=== PATIENT | female | born 1930 | race Caucasian/White ===

== ENCOUNTER → 2017-01-14 | Outpatient (CLI) | payer OTHER | END | disposition home or self-care (01) | LOC: PCVCCLINIC 12:17 | PROVIDERS: ATTEND Internal Medicine Cardiovascular Disease | DX: I48.0 Paroxysmal atrial fibrillation (principal); I65.29 Occlusion and stenosis of unspecified carotid artery; I10 Essential (primary) hypertension; E78.00 Pure hypercholesterolemia, unspecified; I35.0 Nonrheumatic aortic (valve) stenosis | CPT/HCPCS: 93005; G0463 ==

== ENCOUNTER → 2017-08-07 | Outpatient (CLI) | payer OTHER ==
--- NOTE | 2017-08-08 13:00 | PCVCIMAG ---
APPROVED REPORT Study performed: 08/07/2017 13:38:09 EXAM: Comprehensive 2D, Doppler, and color-flow Echocardiogram Patient Location: Echo lab Status: routine BSA: 1.72 HR: 66 bpmBP: 132/86 mmHg Rhythm: NSR Other Information Study Quality: Adequate Risk Factors: Cardiac Risk Factors: HTN, Hyperlipidemia Indications Aortic Valve Disease Atrial Fibrillation Hypertension/HDD 2D Dimensions LVEF(%): 82.31 (>50%) IVSd: 9.99 (7-11mm)LVOT Diam: 19.48 (18-24mm) LVDd: 39.17 mm PWd: 9.24 (7-11mm)Ascending Ao: 32.20 (22-36mm) LVDs: 19.40 (25-40mm) Left Atrium: 41.60 (27-40mm) Aortic Root: 24.75 mm LV Single Plane 4CH: 65.81 % LV Single Plane 2CH: 65.46 %[place] LVEF: 65.64 % Biplane EF: 66.6 % Volumes Left Atrial Volume (Systole) Single Plane 4CH: 28.98 mLSingle Plane 2CH: 35.89 mL Biplane LA Volume: 35.00 mLLA ESV Index: 20.00 mL/m2 Aortic Valve AoV Peak Carlos.: 2.85 m/s AO Peak Gr.: 30.94 mmHgLVOT Max P.43 mmHg AO Mean Gr.: 18.13 mmHgLVOT Mean P.46 mmHg AO V2 Mean: 2.04 m/sLVOT Max V: 0.99 m/s AO V2 VTI: 66.23 cmLVOT Mean V: 0.76 m/s YVONNE (VTI): 1.07 [id number] V1 VTI: 23.73 cm YVONNE Vmax: 1.03 cm2 AI Vmax: 6.82 m/sSV (LVOT): 70.66 mL AI [place]: 2.61 m/s2 AI PHT: 756.60 ms Mitral Valve E/A Ratio: 0.9 MV Decel. Time: 260.61 ms MV E Max Carlos.: 1.07 m/s MV A Carlos.: 1.18 m/s IVRT: 83.04 ms TDI E/Lateral E': 17.83E/Medial E': 21.40 Medial E' Carlos.: 0.05 m/s Lateral E' Carlos.: 0.06 m/s Pulmonary Valve PV Peak Carlos.: 0.90 m/sPV Peak Gr.: 3.21 mmHg Pulmonary Vein P Vein S: 0.44 m/sP Vein A: 0.28 m/s P Vein D: 0.41 m/sP Vein A Dur.: 93.4 msec P Vein S/D Ratio: 1.07 Tricuspid Valve TR Peak Carlos.: 2.17 m/s TR Peak Gr.: 18.88 mmHg TV Vmax: 0.59 m/sPA Pressure: 26.00 mmHg Left Ventricle The left ventricle is normal size. There is normal LV segmental wall motion. Borderline concentric left ventricular hypertrophy. Left ventricular systolic function is normal. The left ventricular ejection fraction is within the normal range. LVEF is 65-70%. The left ventricular diastolic function is normal. Indicators for increased left atrial pressure are seen. Right Ventricle The right ventricle is normal size. The right ventricular systolic function is normal. Atria The left atrium size is normal. The right atrium size is normal. Aortic Valve Aortic valve is trileaflet. Moderate-severe aortic valve sclerosis. Mild aortic regurgitation. Moderate aortic stenosis. Highest mean aortic valve gradient is 18mmHg. Peak aortic valve gradient is 32.6mmHg. Calculated YVONNE by the continuity equation is 1.1cm2. Mitral Valve Mitral valve is normal in structure. There is mitral annular calcification. There is no mitral valve regurgitation noted. No evidence of mitral valve stenosis. Tricuspid Valve The tricuspid valve is normal in structure. Mild tricuspid regurgitation. Pulmonic Valve The pulmonary valve is normal in structure. Mild pulmonic regurgitation. Great Vessels The aortic root is normal in size. IVC is normal in size and collapses with >50% inspiration Pericardium There is no pericardial effusion. <Conclusion> The left ventricle is normal size. Borderline concentric left ventricular hypertrophy. LVEF is 65-70%. The left ventricular diastolic function is normal. Indicators for increased left atrial pressure are seen. The right ventricle is normal size. The left atrium size is normal. Aortic valve is trileaflet. Moderate-severe aortic valve sclerosis. Moderate aortic stenosis. Highest mean aortic valve gradient is 18mmHg. Peak aortic valve gradient is 32.6mmHg. Calculated YVONNE by the continuity equation is 1.1cm2. Mild aortic regurgitation. There is no mitral valve regurgitation noted. Mitral valve is normal in structure. There is mitral annular calcification. Mild tricuspid regurgitation. There is no pericardial effusion.
== END | disposition home or self-care (01) ==
LOC: PCVCIMAG 13:23
PROVIDERS: ATTEND Internal Medicine Cardiovascular Disease
DX: I08.2 Rheumatic disorders of both aortic and tricuspid valves (principal); I48.91 Unspecified atrial fibrillation; I10 Essential (primary) hypertension; I65.29 Occlusion and stenosis of unspecified carotid artery; M19.90 Unspecified osteoarthritis, unspecified site; Z86.718 Personal history of other venous thrombosis and embolism; Z85.3 Personal history of malignant neoplasm of breast; Z79.82 Long term (current) use of aspirin; Z90.49 Acquired absence of other specified parts of digestive tract; Z90.12 Acquired absence of left breast and nipple; Z79.899 Other long term (current) drug therapy; Z88.8 Allergy status to other drugs, medicaments and biological substances
CPT/HCPCS: 80061; 93005; 93306; G0463

== ENCOUNTER → 2018-05-26 | Outpatient (CLI) | payer OTHER | END | disposition home or self-care (01) | LOC: PCVCIMAG 12:52 | DX: I08.0 Rheumatic disorders of both mitral and aortic valves (principal); I48.91 Unspecified atrial fibrillation | CPT/HCPCS: 93306 ==

== ENCOUNTER → 2019-10-18 | Outpatient (CLI) | payer OTHER ==
--- NOTE | 2019-10-18 12:28 | PCVCIMAG ---
APPROVED REPORT Indications Bruit Stenosis Doppler Spectral Velocity Analysis PSV / EDVPSV / EDV ECA (R) 62 / 8 cm/sECA (L) 70 / 6 cm/s dICA (R) 39 / 9 cm/sdICA (L) 58 / 10 cm/s Sam (R) 41 / 8 cm/smICA (L) 42 / 6 cm/s pICA (R) 35 / 5 cm/spICA (L) 39 / 7 cm/s Bulb (R) 28 / 4 cm/sBulb (L) 40 / 7 cm/s dCCA (R) 54 / 10 cm/sdCCA (L) 65 / 7 cm/s mCCA (R) 52 / 8 cm/smCCA (L) 70 / 10 cm/s Vert (R) 53 / 13 cm/sVert (L) 32 / 4 cm/s ICA/CCA 0.76 ICA/CCA 0.82 Basic Measurements Blood Pressure: Pulses: Right Left RightLeft Brachial(Sitting) 168/84mmHgTemporal Real Time B-Mode Imaging Vert. (R)AntegradeVert. (L)Antegrade Findings The right carotid bulb has mild calcified plaque. The right proximal internal carotid artery shows no significant stenosis. The right common carotid artery shows no significant stenosis. The right external carotid artery shows no significant stenosis. The left carotid bulb has mild plaque. The left proximal internal carotid artery shows no significant stenosis. The left common carotid artery shows no significant stenosis. The left external carotid artery shows no significant stenosis. Conclusion 1. 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 2. Antegrade vertebral flow Comparison with the study dated February 17, 2015, no significant differences were identified.
== END | disposition home or self-care (01) ==
LOC: PCVCIMAG 11:52
PROVIDERS: ATTEND Internal Medicine Cardiovascular Disease
DX: I65.23 Occlusion and stenosis of bilateral carotid arteries (principal); E78.00 Pure hypercholesterolemia, unspecified; I47.1 Supraventricular tachycardia; I44.4 Left anterior fascicular block; I48.0 Paroxysmal atrial fibrillation; Z90.49 Acquired absence of other specified parts of digestive tract; Z85.3 Personal history of malignant neoplasm of breast; Z90.12 Acquired absence of left breast and nipple; Z82.49 Family history of ischemic heart disease and other diseases of the circulatory system; Z83.3 Family history of diabetes mellitus; Z80.3 Family history of malignant neoplasm of breast; Z88.8 Allergy status to other drugs, medicaments and biological substances; Z79.899 Other long term (current) drug therapy; Z79.82 Long term (current) use of aspirin
CPT/HCPCS: 93880

== ENCOUNTER → 2019-10-18 | Outpatient (CLI) | payer OTHER | END | disposition home or self-care (01) | LOC: PCVCCLINIC 10:30 | PROVIDERS: ATTEND Internal Medicine Cardiovascular Disease | DX: I35.0 Nonrheumatic aortic (valve) stenosis (principal); I44.4 Left anterior fascicular block; I48.0 Paroxysmal atrial fibrillation; I10 Essential (primary) hypertension; E78.00 Pure hypercholesterolemia, unspecified; R09.89 Other specified symptoms and signs involving the circulatory and respiratory systems; R06.02 Shortness of breath; R07.9 Chest pain, unspecified; Z79.82 Long term (current) use of aspirin; Z79.899 Other long term (current) drug therapy; Z88.8 Allergy status to other drugs, medicaments and biological substances | CPT/HCPCS: 36415; 80061; 93005; G0463 ==

== ENCOUNTER → 2019-10-19 | Outpatient (CLI) | payer OTHER ==
--- NOTE | 2019-10-19 13:20 | PCVCIMAG ---
APPROVED REPORT Study performed: 10/19/2019 11:26:58 EXAM: Comprehensive 2D, Doppler, and color-flow Echocardiogram Patient Location: Echo lab Status: routine BSA: 1.74 HR: 71 bpmBP: 132/80 mmHg Rhythm: NSR w/ pvcs Other Information Study Quality: Adequate Risk Factors: Cardiac Risk Factors: HTN Indications Abnormal ECG Dyspnea aortic stenosis 2D Dimensions IVSd: 14.02 (7-11mm)LVOT Diam: 19.31 (18-24mm) LVDd: 37.63 mm PWd: 13.30 (7-11mm)Ascending Ao: 33.82 (22-36mm) LVDs: 32.16 (25-40mm) Left Atrium: 36.88 (27-40mm) Aortic Root: 30.78 mm Volumes Left Atrial Volume (Systole) Single Plane 4CH: 68.17 mLSingle Plane 2CH: 69.47 mL LA ESV Index: 40.00 mL/m2 Aortic Valve AoV Peak Carlos.: 3.58 m/s AO Peak Gr.: 51.47 mmHgLVOT Max P.72 mmHg AO Mean Gr.: 28.02 mmHgLVOT Mean P.53 mmHg AO V2 Mean: 2.46 m/sLVOT Max V: 1.09 m/s AO V2 VTI: 86.92 cmLVOT Mean V: 0.75 m/s YVONNE (VTI): 0.89 [id number] V1 VTI: 26.56 cm YVONNE Vmax: 0.89 cm2 AI Vmax: 5.06 m/sSV (LVOT): 77.73 mL AI [place]: 3.72 m/s2 AI PHT: 395.34 ms Mitral Valve E/A Ratio: 0.8 MV Decel. Time: 263.16 ms MV E Max Carlos.: 1.13 m/s MV A Carlos.: 1.45 m/s IVRT: 86.51 ms Pulmonary Valve PV Peak Carlos.: 0.96 m/sPV Peak Gr.: 3.69 mmHg Pulmonary Vein P Vein S: 0.30 m/sP Vein A: 0.31 m/s P Vein D: 0.46 m/sP Vein A Dur.: 124.6 msec P Vein S/D Ratio: 0.65 Tricuspid Valve TR Peak Carlos.: 2.51 m/s TR Peak Gr.: 25.20 mmHg Left Ventricle The left ventricle is normal size. There is normal LV segmental wall motion. Mild to moderate concentric left ventricular hypertrophy. Left ventricular systolic function is normal. The left ventricular ejection fraction is within the normal range. LVEF is 50-55%. Grade I - abnormal relaxation pattern. Right Ventricle The right ventricle is normal size. The right ventricular systolic function is normal. Atria Left atrium is mildly dilated. The right atrium size is normal. Aortic Valve The aortic valve is normal in structure. Moderate aortic regurgitation. Moderate aortic stenosis. Calculated aortic valve area is .9 cm2 with maximum pressure gradient of 51 mmHg and mean pressure gradient of 28 mmHg. Mitral Valve The mitral valve is normal in structure. Mild mitral regurgitation. No evidence of mitral valve stenosis. Tricuspid Valve The tricuspid valve is normal in structure. Mild tricuspid regurgitation with PAP of 32 mmHg. Pulmonic Valve The pulmonary valve is normal in structure. There is trace pulmonic valvular regurgitation. Great Vessels The aortic root is normal in size. IVC is normal in size and collapses >50% with inspiration. Pericardium There is no pericardial effusion. There is no pleural effusion. <Conclusion> The left ventricle is normal size. Mild to moderate concentric left ventricular hypertrophy. LVEF is 50-55%. Grade I - abnormal relaxation pattern. The right ventricle is normal size. Left atrium is mildly dilated. The right atrium size is normal. Moderate aortic regurgitation. Moderate aortic stenosis. Calculated aortic valve area is .9 cm2 with maximum pressure gradient of 51 mmHg and mean pressure gradient of 28 mmHg. Mild mitral regurgitation. Mild tricuspid regurgitation with PAP of 32 mmHg. The aortic root is normal in size. There is no pericardial effusion.
== END | disposition home or self-care (01) ==
LOC: PCVCIMAG 11:12
PROVIDERS: ATTEND Internal Medicine Cardiovascular Disease
DX: I08.3 Combined rheumatic disorders of mitral, aortic and tricuspid valves (principal); I10 Essential (primary) hypertension; I48.0 Paroxysmal atrial fibrillation; R94.31 Abnormal electrocardiogram [ECG] [EKG]; E78.00 Pure hypercholesterolemia, unspecified; Z88.8 Allergy status to other drugs, medicaments and biological substances
CPT/HCPCS: 93306

== ENCOUNTER → 2019-11-01 | Outpatient (CLI) | payer OTHER ==
[~2019-11-01] MED LIST: REGADENOSON 0.4 MG/5 ML DISP.SYRIN. IV ONE
--- NOTE | 2019-11-02 11:46 | PCVCIMAG ---
APPROVED REPORT Imaging Protocol: Rest Tc-99m/Stress Tc-99m 1 day Study performed: 11/01/2019 14:13:50 Indication: Chest pain, Dyspnea, Paroxysmal Atrial Fibrillation Patient Location: Out-Patient Stress Nurse: Prema Carrillo RN, Rosi Edwards RN PA Tech:SILVA NunezMT Ht: 5 ft 0 in Wt: 160 lbs BSA: 1.70 m2 HR: 77 bpm BP: 184/90 mmHg BMI: 31.24 Rhythm: Sinus Rhythm with frequest PVC's Medical History Medical History: Hyperlipidemia, HTN, CVD Medications: Amlodipine, Aspirin, Metoprolol, Losartan Allergies: Ketoconazole Cardiac Risk Factors: Age Pretest Chest Pain Characteristics: No chest pain Meds Held (24 hrs): Metoprolol Resting Data Rest SPECT myocardial perfusion imaging was performed in supine position 45 minutes following the intravenous injection of 10.2 mCi of Tc-99m Sestamibi. Time of rest injection: 1345 Date: 11/01/2019 Administration Route: IV Administration Site: Right AC Pharmacologic Stress Pharmacologic stress test was performed by injecting Regadenoson 0.4 mg IV push over 10-15 seconds immediately followed by the intravenous injection of 35.5 mCi of Tc-99m Sestamibi. Time of stress injection: 1510 Date: 11/01/2019 Administration Route: IV Administration Site: Right AC Gated Stress SPECT was performed 45 minutes after stress injection. The images were gated to evaluate regional wall motion and calculate left ventricular ejection fraction. Stress Test Details Stress Test: Pharmacologic stress testing performed using 0.4 mg of regadenoson per 5 mL given IV over 10 seconds. Reason for pharmacologic stress test: physical limitation. HRMax Heart Rate (APMHR): 133 bpm Resting HR: 77 bpmTarget HR (85% APMHR): 113 bpm Max HR Achieved: 102 bpm % of APMHR: 76 Recovery HR: 86 bpm BP Resting BP: 184/90 mmHg Max BP: 194/90 mmHg Recovery BP: 182/90 mmHg ECG Resting ECG: Sinus Rhythm with frequest PVC's Stress ECG: Sinus Tachycardia with frequest PVC's Arrhythmia: PVC's and Couplets Recovery ECG: Sinus Rhythm with frequest PVC's Clinical Reason for Termination: Completed protocol Stress Symptoms: Dyspnea, Lightheaded Symptoms resolved with caffeine. Stress ECG Conclusion ECG: Non-ischemic ECG: Non-ischemic Study Quality Study: Good Study Data Post stress, the left ventricular ejection was 51%.. SSS: 11 SRS: 14 SDS: 0 TID = 1.08. Perfusion No evidence of stress induced ischemia or prior myocardial infarction. Wall Motion Normal left ventricular size and function with no regional wall motion abnormalities. Nuclear Conclusion No evidence of stress induced ischemia or prior myocardial infarction. Normal left ventricular size and function with no regional wall motion abnormalities. Post stress, the left ventricular ejection was 51%. No prior study available for comparison. <Conclusion> ECG: Non-ischemic ECG: Non-ischemic
== END | disposition home or self-care (01) ==
LOC: PCVCIMAG 13:27
PROVIDERS: ATTEND Internal Medicine Cardiovascular Disease
DX: I48.0 Paroxysmal atrial fibrillation (principal); I10 Essential (primary) hypertension; E78.5 Hyperlipidemia, unspecified
CPT/HCPCS: 78452; 93017; A9500; J2785